=== PATIENT | male | born 1940 | race Caucasian/White ===

== ENCOUNTER 2020-03-31 14:22 | Emergency (ER) | payer MEDICARE ==
--- NOTE | 2020-03-31 14:27 | ERPHSYRPT ---
- History of Present Illness Time Seen by Provider: 03/31/20 14:27 Source: patient Exam Limitations: no limitations Physician History: This is a 79-year-old white male who has a history of significant peripheral neuropathy and was walking out of a hardware store and his foot hit sidewalk curb. He then fell onto his left side. He complains of pain in the left shoulder left upper arm, left elbow, left forearm, left wrist, left hand and left ribs. He did not hit his head. He did not lose consciousness. He is on Plavix. He has a history of hypertension, diabetes and gastroesophageal reflux disease. Occurred: just prior to arrival Reason for Fall: tripped Injuries/Pain Location: upper extremity (Left) Loss of Consciousness: no loss of consciousness Quality: aching Severity of Pain-Max: moderate Severity of Pain-Current: moderate Modifying Factors: Improves With: movement Associated Symptoms (Fall): extremity injury (Left upper extremity) Allergies/Adverse Reactions: No Known Drug Allergies Allergy (Unverified 03/31/20 14:45) Home Medications: Amlodipine Besylate 5 mg [Norvasc 5 mg] 5 mg PO DAILY 03/31/20 [History] Aspirin 81 gm Chew [Baby Aspirin 81 mg Chew] 81 mg PO DAILY 03/31/20 [History] Clopidogrel Bisulfate [Clopidogrel] 75 mg PO DAILY 03/31/20 [History] Folic Acid 1 mg [Folate 1 mg] 1 mg PO DAILY 03/31/20 [History] Gabapentin 100 mg PO DAILY 03/31/20 [History] Levothyroxine Sodium [Synthroid] 125 mcg PO DAILY 03/31/20 [History] Lisinopril 20 mg [Zestril 20 MG] 20 mg PO DAILY 03/31/20 [History] Meclizine HCl 25 mg [Antivert 25 mg] 25 mg PO TID 03/31/20 [History] Metoprolol Succinate 50 mg PO BID 03/31/20 [History] [place]-3 Fatty Acids [[place]-3] 100 mg PO DAILY 03/31/20 [History] Hx Tetanus, Diphtheria Vaccination/Date Given: No Hx Influenza Vaccination/Date Given: No Hx Pneumococcal Vaccination/Date Given: No Travel Risk - International Travel Have you traveled outside of the country in past 3 weeks: No - Coronavirus Screening Are you exhibiting any of the following symptoms?: No Close contact with a COVID-19 positive Pt in past 14-21 Days: No - Review of Systems Constitutional: No Symptoms Eyes: No Symptoms Ears, Nose, & Throat: No Symptoms Respiratory: No Symptoms Cardiac: No Symptoms Abdominal/Gastrointestinal: No Symptoms Genitourinary Symptoms: No Symptoms Musculoskeletal: Fall, Injury (Left upper extremity, left ribs) Skin: No Symptoms Neurological: No Symptoms Psychological: No Symptoms Endocrine: No Symptoms Hematologic/Lymphatic: No Symptoms Immunological/Allergic: No Symptoms All Other Systems: Reviewed and Negative - Past Medical History Neurological History: No Pertinent History Cardiac History: High Cholesterol, Hypertension, Myocardial Infarction ([place]) Respiratory History: No Pertinent History Endocrine Medical History: Diabetes Type II, Hypothyroidism Musculoskeletal History: No Pertinent History GI Medical History: Hemorrhoids, Ulcer History: No Pertinent History Psycho-Social History: Anxiety, Depression Male Reproductive Disorders: No Pertinent History Other Medical History: AORTA STENT - Past Surgical History Past Surgical History: Yes Neuro Surgical History: No Pertinent History Cardiac: No Pertinent History Respiratory: No Pertinent History Genitourinary: No Pertinent History Male Surgical History: No Pertinent History Other Surgical History: AORTA STENT,TONSILLS, - Social History Smoking Status: Never smoker Exposure to second hand smoke: Yes Drug Use: none Patient Lives Alone: No - Nursing Vital Signs Nursing Vital Signs: Initial Vital Signs Temperature 98.0 F 03/31/20 14:36 Pulse Rate 61 03/31/20 14:36 Respiratory Rate 16 03/31/20 14:36 Blood Pressure 154/82 03/31/20 14:36 O2 Sat by Pulse Oximetry 97 03/31/20 14:36 Pain Scale Pain Intensity 5 - Len Coma Score Best Eye Response (Len): (4) open spontaneously Best Verbal Response (Len): (5) oriented Best Motor Response (Sophia): (6) obeys commands Len Total: 15 - Physical Exam General Appearance: no apparent distress, alert, anxiety Head Injury: no evidence of injury Eye Exam: PERRL/EOMI, eyes nml inspection ENT Exam: airway nml, nml ext.inspection Neck Exam: supple, trachea midline, full range of motion, normal alignment, normal inspection Respiratory/Chest Exam: normal breath sounds, No chest tenderness, No respiratory distress, No ecchymosis, No crepitus Cardiovascular Exam: normal heart sounds, regular rate/rhythm Gastrointestinal Exam: No tenderness Rectal Exam: not done Back Exam: normal inspection, normal range of motion, No CVA tenderness, No vertebral tenderness Extremity Exam: normal range of motion, pelvis stable, swelling (Dorsal aspect left hand), tenderness (Left shoulder, left humerus, left elbow, left forearm, left wrist, left hand), No deformities Neurologic Exam: alert, oriented x 3, cooperative, paediatric thoracic physician II-XII nml as tested, normal mood/affect, nml cerebellar function, nml station & gait, sensation nml Skin Exam: normal color, warm, dry SpO2 Interpretation: normal O2 Delivery: Room Air - Course Nursing assessment & vital signs reviewed: Yes Ordered Tests: Active Orders 24 hr Category Date Time Status ELBOW (MINIMUM 3 VIEWS) Stat Exams 03/31/20 15:19 Completed FOREARM Stat Exams 03/31/20 15:20 Completed HAND (MINIMUM 3 VIEWS) Stat Exams 03/31/20 15:19 Completed HUMERUS Stat Exams 03/31/20 15:19 Completed RIBS UNILATERAL Stat Exams 03/31/20 15:20 Completed SHOULDER Stat Exams 03/31/20 15:19 Completed WRIST (MIN 3 VIEWS) Stat Exams 03/31/20 15:19 Completed - Progress Progress: unchanged, pain not gone completely, re-examined Progress Note: 03/31/20 16:56 X-rays of all the left sided studies that were performed are negative for any acute fracture or dislocations. Counseled pt/family regarding: diagnosis, need for follow-up, rad results - Departure Departure Disposition: Home Clinical Impression: Fall with injury, Multiple contusions Condition: Stable Critical Care Time: No Referrals: FABRICIO JACKSON MD [Primary Care Provider] - Additional Instructions: Ice pack to areas 3 times a day. Follow-up with primary care physician for persistent symptoms. Prescriptions: Oxycodone HCl/Acetaminophen [Percocet 5-325 mg Tablet] 1 each PO Q8H PRN PRN #6 tablet MDD 3 PRN Reason: Pain
[2020-03-31 15:51] VITALS: O2SAT 98
--- NOTE | 2020-03-31 16:33 | XRAY ---
Indication: Pain following fall. Comparison: None 3 view left wrist demonstrates advanced 1st metacarpal multangular scaphoid degenerative changes and mild scattered vascular calcifications. No other bony, articular, or soft tissue abnormalities.
--- NOTE | 2020-03-31 16:35 | XRAY ---
Indication: Pain following fall. Comparison: None 3 view left shoulder demonstrates mild glenohumeral degenerative arthropathy, moderate AC degenerative arthropathy, mild multilevel thoracic degenerative spondylosis, and left pacemaker. No other bony, articular, or soft tissue abnormalities.
--- NOTE | 2020-03-31 16:38 | XRAY ---
Indication: Pain following fall. Comparison: None 2 view left ribs demonstrates mild degenerative spondylosis throughout the spine, left shoulder degenerative arthropathy reported separately, left dual-lead pacemaker, incompletely visualized aortic stent graft, and splenic calcified granulomas. No other bony, articular, or soft tissue abnormalities.
--- NOTE | 2020-03-31 16:38 | XRAY ---
Indication: Pain following fall. Comparison: None 2 view left humerus demonstrates shoulder degenerative arthropathy reported separately and left pacemaker. No other bony, articular, or soft tissue abnormalities.
--- NOTE | 2020-03-31 16:39 | XRAY ---
Indication: Pain following fall. Comparison: None 2 view left forearm demonstrates small olecranon spur and wrist degenerative arthropathy reported separately. No other bony, articular, or soft tissue abnormalities.
--- NOTE | 2020-03-31 16:39 | XRAY ---
Indication: Pain following fall. Comparison: None 3 view left hand demonstrates mild degenerative changes all IP joints and advanced 1st metacarpal multangular scaphoid degenerative changes. No other bony, articular, or soft tissue abnormalities.
--- NOTE | 2020-03-31 16:42 | XRAY ---
Indication: Pain following fall. Comparison: None 3 view left elbow demonstrates small spurring of olecranon and medial epicondyle. No other bony, articular, or soft tissue abnormalities.
[2020-03-31 17:15] VITALS: BP 117/79; PULSE 60
== END 2020-03-31 17:22 | disposition home or self-care (01) ==
LOC: ED 14:22
DX: M25.512 Pain in left shoulder (principal); M79.622 Pain in left upper arm; M25.522 Pain in left elbow; M25.532 Pain in left wrist; M79.642 Pain in left hand; I10 Essential (primary) hypertension; E11.9 Type 2 diabetes mellitus without complications; Z79.01 Long term (current) use of anticoagulants; W18.31XA Fall on same level due to stepping on an object, initial encounter
CPT/HCPCS: 71100; 73030; 73060; 73080; 73090; 73110; 73130; 99283

== ENCOUNTER 2020-06-28 06:42 | Emergency (ER) | payer MEDICARE ==
--- NOTE | 2020-06-28 07:18 | ERPHSYRPT ---
- History of Present Illness Time Seen by Provider: 06/28/20 07:05 Historian: patient Exam Limitations: no limitations Patient Subjective Stated Complaint: pt states "I had chest pain 2 days ago with pain in my shoulders." "The pain comes and goes." Triage Nursing Assessment: pt ambulated into the er with a cane; pt is axo x4; c/o chest pain intermitten for 2 days; pt denies pain at this time; pt states he had chest pain 30 minutes prior to coming in; pt states that he took 2 81 mg aspirin; pt states he has hx of CO; hx aortic stent; clear heart tone; paced rythm; no edema present; strong radial pulses; strong pedal pulses; clear lung sounds in all lobes; no JVD present; >3 cap refill; vitals wnl Physician History: Patient is a 79-year-old male presents to our emergency department with complaints of intermittent chest pain. Patient states he started experiencing chest pain 2 days ago. Chest pain has been on and off according to patient. When present the pain typically radiates to both shoulders and the left side of his neck. No associated nausea vomiting or diaphoresis. Chest pain tends to spontaneously resolve. Patient last had chest pain approximately 30 minutes prior to arrival. Patient is currently pain-free. Patient took 2 aspirin prior to arrival. Patient advises that he has a history of CO in the past which resulted in multiple cardiac stents, and aortic stent. Patient currently has a cardiac pacemaker. Patient feels well this time. He voices no other complaints or concerns. Timing/Duration: day(s) (2 days.) Activities at Onset: none Quality: aching Location: substernal Chest Pain Radiation: neck (Pain radiates to the neck and both shoulders.) Severity of Pain-Max: moderate Severity of Pain-Current: mild Modifying Factors: Improves With: nothing Associated Symptoms: denies symptoms, No nausea, No vomiting, No palpitations, No abdominal pain, No shortness of breath, No hurts to breathe, No diaphoresis, No fever, No edema Prior Chest Pain/Cardiac Workup: cardiac cath, heart attack Nitro Today/Relief: no nitro taken today Aspirin Treatment Today: 81 mg x 2 Allergies/Adverse Reactions: No Known Drug Allergies Allergy (Verified 06/28/20 06:44) Home Medications: Amlodipine Besylate 5 mg [Norvasc 5 mg] 5 mg PO DAILY 03/31/20 [History] Aspirin 81 gm Chew [Baby Aspirin 81 mg Chew] 81 mg PO DAILY 03/31/20 [History] Clopidogrel Bisulfate [Clopidogrel] 75 mg PO DAILY 03/31/20 [History] Folic Acid 1 mg [Folate 1 mg] 1 mg PO DAILY 03/31/20 [History] Gabapentin 100 mg PO DAILY 03/31/20 [History] Levothyroxine Sodium [Synthroid] 125 mcg PO DAILY 03/31/20 [History] Lisinopril 20 mg [Zestril 20 MG] 20 mg PO DAILY 03/31/20 [History] Meclizine HCl 25 mg [Antivert 25 mg] 25 mg PO TID 03/31/20 [History] Metoprolol Succinate 50 mg PO BID 03/31/20 [History] [place]-3 Fatty Acids [[place]-3] 100 mg PO DAILY 03/31/20 [History] Hx Tetanus, Diphtheria Vaccination/Date Given: No Hx Influenza Vaccination/Date Given: Yes Hx Pneumococcal Vaccination/Date Given: No Travel Risk - International Travel Have you traveled outside of the country in past 3 weeks: No - Coronavirus Screening Are you exhibiting any of the following symptoms?: No Close contact with a COVID-19 positive Pt in past 14-21 Days: No - Review of Systems Constitutional: No Symptoms, No Fever, No Chills Eyes: No Symptoms Ears, Nose, & Throat: No Symptoms Respiratory: No Symptoms, No Cough, No Dyspnea Cardiac: No Symptoms, No Chest Pain, No Edema, No Syncope Abdominal/Gastrointestinal: No Symptoms, No Abdominal Pain, No Nausea, No Vomiting, No Diarrhea Genitourinary Symptoms: No Symptoms, No Dysuria Musculoskeletal: No Symptoms, No Back Pain, No Neck Pain Skin: No Symptoms, No Rash Neurological: No Symptoms, No Dizziness, No Focal Weakness, No Sensory Changes Psychological: No Symptoms Endocrine: No Symptoms Hematologic/Lymphatic: No Symptoms Immunological/Allergic: No Symptoms All Other Systems: Reviewed and Negative - Past Medical History Pertinent Past Medical History: Yes Neurological History: No Pertinent History Cardiac History: High Cholesterol, Hypertension, Myocardial Infarction ([place]) Respiratory History: No Pertinent History Endocrine Medical History: Diabetes Type II, Hypothyroidism Musculoskeletal History: No Pertinent History GI Medical History: Hemorrhoids, Ulcer History: No Pertinent History Psycho-Social History: Anxiety, Depression Male Reproductive Disorders: No Pertinent History Other Medical History: AORTA STENT - Past Surgical History Past Surgical History: Yes Neuro Surgical History: No Pertinent History Cardiac: No Pertinent History Respiratory: No Pertinent History Genitourinary: No Pertinent History Male Surgical History: No Pertinent History Other Surgical History: AORTA STENT,TONSILLS, - Social History Smoking Status: Former smoker Exposure to second hand smoke: Yes Drug Use: none Patient Lives Alone: No - Nursing Vital Signs Nursing Vital Signs: Initial Vital Signs Temperature 98.2 F 06/28/20 06:44 Pulse Rate 60 06/28/20 06:44 Respiratory Rate 20 06/28/20 06:44 Blood Pressure 132/72 06/28/20 06:44 O2 Sat by Pulse Oximetry 97 06/28/20 06:44 Pain Scale Pain Intensity 0 - Physical Exam General Appearance: no apparent distress, alert Eye Exam: PERRL/EOMI, eyes nml inspection Ears, Nose, Throat Exam: normal ENT inspection, moist mucous membranes Neck Exam: normal inspection, non-tender, supple, full range of motion Respiratory Exam: normal breath sounds, lungs clear, No respiratory distress Cardiovascular Exam: regular rate/rhythm, normal heart sounds Gastrointestinal/Abdomen Exam: soft, No tenderness, No mass Back Exam: normal inspection, No CVA tenderness, No vertebral tenderness Extremity Exam: normal inspection, normal range of motion Neurologic Exam: alert, oriented x 3, cooperative, normal mood/affect, sensation nml, No motor deficits Skin Exam: normal color, warm, dry Lymphatic Exam: No adenopathy SpO2 Interpretation: normal SpO2: 97 O2 Delivery: Room Air - Course Nursing assessment & vital signs reviewed: Yes EKG Interpreted by Me: RATE (60), Other (Atrial paced rhythm) - Radiology Exams Chest X-ray Interpretation: Teleradiologist Report (Hyperinflated lungs, left dual- lead pacemaker, right hilar calcified nodes, degenerative changes observed in bony thorax. Nonacute chest with chronic features.) Ordered Tests: Active Orders 24 hr Category Date Time Status AMA [Release AMA] OM.NOW Care 06/28/20 11:28 Active Shelter Director STAT Care 06/28/20 07:04 Active EKG-ER Only STAT Care 06/28/20 07:03 Active IV Insertion STAT Care 06/28/20 07:03 Active Pulse Oximetry (ED) STAT Care 06/28/20 07:03 Active CHEST 1 VIEW (PORTABLE) Stat Exams 06/28/20 07:04 Completed CBC W DIFF Stat Lab 06/28/20 07:20 Completed CMP Stat Lab 06/28/20 07:20 Completed MAGNESIUM Stat Lab 06/28/20 07:20 Completed NT PRO BNP Stat Lab 06/28/20 07:20 Completed TROPONIN Q3H Lab 06/28/20 07:20 Completed TROPONIN Q3H Lab 06/28/20 10:27 Completed TROPONIN Q3H Lab 06/28/20 13:15 Ordered TROPONIN Q3H Lab 06/28/20 16:15 Ordered TROPONIN Q3H Lab 06/28/20 19:15 Ordered UA W/RFX UR CULTURE Stat Lab 06/28/20 07:58 Completed Lab/Rad Data: Laboratory Result Diagrams 06/28/20 07:20 06/28/20 07:20 Laboratory Results 06/28/20 06/28/20 06/28/20 Range/Units 10:27 07:58 07:20 WBC (4.0-10.5) K/mm3 RBC (4.1-5.6) M/mm3 Hgb (12.5-18.0) gm/dl Hct (42-50) % MCV (78-100) fl MCH (26-32) pg MCHC (32-36) g/dl RDW (11.5-14.0) % Plt Count (150-450) K/mm3 MPV (7.5-11.0) fl Gran % (36.0-66.0) % Eos # (Auto) (0-0.5) Absolute Lymphs (auto) (1.0-4.6) Absolute Monos (auto) (0.0-1.3) Lymphocytes % (24.0-44.0) % Monocytes % (0.0-12.0) % Eosinophils % (0.00-5.0) % Basophils % (0.0-0.4) % Absolute Granulocytes (1.4-6.9) Basophils # (0-0.4) Sodium (137-145) mmol/L Potassium (3.5-5.1) mmol/L Chloride (98-107) mmol/L Carbon Dioxide (22-30) mmol/L Anion Gap (5-15) MEQ/L BUN (9-20) mg/dL Creatinine (0.66-1.25) mg/dL Estimated GFR ML/MIN Glucose (74-106) mg/dL Calcium (8.4-10.2) mg/dL Magnesium (1.6-2.3) mg/dL Total Bilirubin (0.2-1.3) mg/dL AST (17-59) U/L ALT (0-50) U/L Alkaline Phosphatase (38-126) U/L Troponin I < 0.012 < 0.012 (0.000-0.034) ng/mL NT-Pro-B Natriuret Pep (0-1800) pg/mL Serum Total Protein (6.3-8.2) g/dL Albumin (3.5-5.0) g/dL Urine Color YELLOW (YELLOW) Urine Appearance CLEAR (CLEAR) Urine pH 7.0 (5-6) Ur Specific Lucas 1.008 (1.005-1.025) Urine Protein 30 (Negative) Urine Ketones NEGATIVE (NEGATIVE) Urine Blood NEGATIVE (0-5) Rony/ul Urine Nitrite NEGATIVE (NEGATIVE) Urine Bilirubin NEGATIVE (NEGATIVE) Urine Urobilinogen NEGATIVE (0-1) mg/dL Ur Leukocyte Esterase NEGATIVE (NEGATIVE) Urine WBC (Auto) NONE (0-5) /HPF Urine RBC (Auto) NONE (0-2) /HPF U Epithel Cells (Auto) NONE (FEW) /HPF Urine Bacteria (Auto) NONE (NEGATIVE) /HPF Urine Culture Reflexed NO (NO) Urine Glucose NEGATIVE (NEGATIVE) mg/dL 06/28/20 06/28/20 Range/Units 07:20 07:20 WBC 7.7 (4.0-10.5) K/mm3 RBC 4.40 (4.1-5.6) M/mm3 Hgb 12.9 (12.5-18.0) gm/dl Hct 38.9 L (42-50) % MCV 88.4 (78-100) fl MCH 29.3 (26-32) pg MCHC 33.2 (32-36) g/dl RDW 13.1 (11.5-14.0) % Plt Count 220 (150-450) K/mm3 MPV 8.9 (7.5-11.0) fl Gran % 53.8 (36.0-66.0) % Eos # (Auto) 0.44 (0-0.5) Absolute Lymphs (auto) 2.23 (1.0-4.6) Absolute Monos (auto) 0.85 (0.0-1.3) Lymphocytes % 29.1 (24.0-44.0) % Monocytes % 11.1 (0.0-12.0) % Eosinophils % 5.7 H (0.00-5.0) % Basophils % 0.3 (0.0-0.4) % Absolute Granulocytes 4.12 (1.4-6.9) Basophils # 0.02 (0-0.4) Sodium 136 L (137-145) mmol/L Potassium 3.7 (3.5-5.1) mmol/L Chloride 101 (98-107) mmol/L Carbon Dioxide 27 (22-30) mmol/L Anion Gap 12.3 (5-15) MEQ/L BUN 17 (9-20) mg/dL Creatinine 1.34 H (0.66-1.25) mg/dL Estimated GFR 54.7 ML/MIN Glucose 200 H (74-106) mg/dL Calcium 9.5 (8.4-10.2) mg/dL Magnesium 1.9 (1.6-2.3) mg/dL Total Bilirubin 0.50 (0.2-1.3) mg/dL AST 23 (17-59) U/L ALT 18 (0-50) U/L Alkaline Phosphatase 43 (38-126) U/L Troponin I (0.000-0.034) ng/mL NT-Pro-B Natriuret Pep 236 (0-1800) pg/mL Serum Total Protein 7.3 (6.3-8.2) g/dL Albumin 4.3 (3.5-5.0) g/dL Urine Color (YELLOW) Urine Appearance (CLEAR) Urine pH (5-6) Ur Specific Lucas (1.005-1.025) Urine Protein (Negative) Urine Ketones (NEGATIVE) Urine Blood (0-5) Rony/ul Urine Nitrite (NEGATIVE) Urine Bilirubin (NEGATIVE) Urine Urobilinogen (0-1) mg/dL Ur Leukocyte Esterase (NEGATIVE) Urine WBC (Auto) (0-5) /HPF Urine RBC (Auto) (0-2) /HPF U Epithel Cells (Auto) (FEW) /HPF Urine Bacteria (Auto) (NEGATIVE) /HPF Urine Culture Reflexed (NO) Urine Glucose (NEGATIVE) mg/dL - Progress Progress: improved Air Movement: good Progress Note: Patient is a 79-year-old male presents to our ED with complaints of intermittent chest pain radiating to her neck and bilateral shoulders. Patient's preliminary work-up reveals a paced rhythm on EKG. Troponin negative x2. Patient advises he has no chest pain at this time. His last bout of chest pain was about 30 minutes prior to arrival. Patient has extensive cardiovascular history including CO in the past, multiple cardiac stents, aortic stent and risk factors including advanced age and diabetes. We advised admission for cardiac rule out. However patient refused. Patient states that he has no chest pain at this time and prefers to go home. He stated that he has many responsibilities at home. Patient is of sound mind and appropriate to make informed and independent medical decisions. Patient understands that leaving AGAINST MEDICAL ADVICE can result in delayed diagnosis, increased risk of morbidity, mortality, short and long-term disability including . In spite of these risks, patient has decided to leave AGAINST MEDICAL ADVICE. Patient understands that he may return to our ED at any point if he reconsiders. Patient agrees to follow-up with his or her primary care doctor within 48 hours for reevaluation. Patient voices no other complaints or concerns at this time. We will release patient AGAINST MEDICAL ADVICE per their request. 06/28/20 11:29 Blood Culture(s) Obtained: No Antibiotics given: No - Departure Departure Disposition: AMA Clinical Impression: Hyperglycemia, Chest pain, ACS (acute coronary syndrome), Renal insufficiency, LAD (lymphadenopathy), hilar Condition: Stable Critical Care Time: No Referrals: FABRICIO JACKSON MD [Primary Care Provider] - Additional Instructions: Discharge/Care Plan LUNA POLANCO was seen on 06/28/20 in the Emergency Room. The patient was counseled regarding Diagnosis,Lab results, Imaging studies, need for follow up and when to return to the Emergency Room. We advised admission. However Mr. Polanco has decided to leave AGAINST MEDICAL ADVICE. He understands that risks include delayed diagnosis, worsening of symptoms, increased risk of morbidity, mortality, short long-term disability including . However, Mr. Polanco may return to our ED at any point if he changes his mind. Prescriptions given: Discharge Note I have spoken with the patient and/or caregivers. I have explained the patient's condition, diagnosis and treatment plan based on the information available to me at this time. I have answered the patient's and/or caregiver's questions and addressed any concerns. The patient and/or caregivers have as good understanding of the patient's diagnosis, condition and treatment plan as can be expected at this point. The vital signs have been stable. The patient's condition is stable and appropriate for discharge from the emergency department. The patient will pursue further outpatient evaluation with the primary care physician or other designated or consulting physician as outlined in the discharge instructions. The patient and/or caregivers are agreeable to this plan of care and follow-up instructions have been explained in detail. The patient and/or caregivers have received these instruction. The patient/and or caregivers are aware that any significant change in condition or worsening of symptoms should prompt an immediate return to this or the closest emergency department or call 911.
[2020-06-28 07:22] LABS: Absolute Neutrophil Ct (ANC) 4.12 (1.4-6.9); BASOPHIL % 0.3 % (0.0-0.4); Basophil (Absolute #) 0.02 (0-0.4); Eosinophil % 5.7 % (0.00-5.0); Eosinophil (Absolute #) 0.44 (0-0.5); Hematocrit 38.9 % (42-50); Hemoglobin 12.9 gm/dl (12.5-18.0); Lymphocyte (Absolute #) 2.23 (1.0-4.6); Lymphocytes % 29.1 % (24.0-44.0); Mean Cell Volume 88.4 fl (78-100); Mean Corpuscular Hemoglobin 29.3 pg (26-32); Mean Corpuscular Hgb Concent. 33.2 g/dl (32-36); Mean Platelet Volume 8.9 fl (7.5-11.0); Monocyte (Absolute #) 0.85 (0.0-1.3); Monocytes % 11.1 % (0.0-12.0); Neutrophil % 53.8 % (36.0-66.0); Platelet Count 220 K/mm3 (150-450); Red Cell Distribution Width 13.1 % (11.5-14.0); White Blood Count 7.7 K/mm3 (4.0-10.5)
[2020-06-28 07:55] LABS: ALBUMIN 4.3 g/dL (3.5-5.0); ANION GAP 12.3 MEQ/L (5-15); BILIRUBIN,TOTAL 0.5 mg/dL (0.2-1.3); Calcium 9.5 mg/dL (8.4-10.2); Creatinine 1 1.34 mg/dL (0.66-1.25); EST GLOMERULAR FILTRATION RATE 54.7 ML/MIN; MAGNESIUM 1.9 mg/dL (1.6-2.3); Potassium 3.7 mmol/L (3.5-5.1); Total Protein 7.3 g/dL (6.3-8.2)
[2020-06-28 08:06] LABS: Appearance CLEAR (CLEAR); Bilirubin NEGATIVE (NEGATIVE); Blood NEGATIVE Ery/ul (0-5); Glucose NEGATIVE (NEGATIVE); Ketones NEGATIVE (NEGATIVE); Leukocyte Esterase NEGATIVE (NEGATIVE); Nitrite NEGATIVE (NEGATIVE); Protein,Urine Dip 30 (Negative); Specific Gravity 1.008 (1.005-1.025); Urobilinogen NEGATIVE mg/dL (0-1)
--- NOTE | 2020-06-28 08:46 | XRAY ---
Indication: Chest pain. Comparison: May 29, 2019. Portable chest remains hyperinflated and clear. Heart is not enlarged for AP portable technique with new left dual-lead pacemaker. Stable right hilar calcified nodes. Bony thorax intact again with mild degenerative changes. Impression: Continued nonacute chest with chronic features.
[2020-06-28 11:38] VITALS: BP 110/70; PULSE 60; O2SAT 96
== END 2020-06-28 11:45 | disposition left against medical advice (07) ==
LOC: ED 06:42
DX: E11.65 Type 2 diabetes mellitus with hyperglycemia (principal); R07.89 Other chest pain; I24.9 Acute ischemic heart disease, unspecified; N28.9 Disorder of kidney and ureter, unspecified; R59.1 Generalized enlarged lymph nodes; M54.2 Cervicalgia; E78.00 Pure hypercholesterolemia, unspecified; I10 Essential (primary) hypertension; E03.9 Hypothyroidism, unspecified; I25.2 Old myocardial infarction; Z79.899 Other long term (current) drug therapy
CPT/HCPCS: 36000; 36415; 71045; 80053; 81001; 83735; 83880; 84484; 85025; 93005; 93041; 94760; 99284

== ENCOUNTER 2024-04-15 16:09 | Emergency (ER) | payer MEDICARE ==
[2024-04-15 16:23] VITALS: TEMP 97.7
--- NOTE | 2024-04-15 16:59 | XRAY ---
Indication: Cough. Comparison: June 28, 2020 Portable chest again hyperinflated and clear. Heart not enlarged again with left pacemaker and tiny right hilar calcified nodes. Bony thorax intact again with osteopenia and moderate degenerative changes. Impression: Continued nonacute chest with chronic features.
[2024-04-15] MEDS ORDERED: DUONEB 0.5-3 MG/3 ml Neb IH ONE (17:29)
[2024-04-15 17:31] LABS: Absolute Neutrophil Ct (ANC) 2.76 x10^3/uL (1.78-5.38); BASOPHIL % 0.6 % (0.2-1.2); Basophil (Absolute #) 0.03 x10^3/uL (0.01-0.08); Eosinophil % 5.6 % (0.8-7.0); Eosinophil (Absolute #) 0.29 x10^3/uL (0.04-0.54); Hemoglobin 10.6 g/dL (13.7-17.5); IMMATURE GRAN # 0.01 x10^3u/L (0.001-0.031); IMMATURE GRAN % 0.2 % (0.001-0.429); Lymphocyte (Absolute #) 1.51 x10^3/uL (1.32-3.57); Mean Cell Volume 89.9 fL (79.0-92.2); Mean Corpuscular Hemoglobin 28.9 pg (25.7-32.2); Mean Corpuscular Hgb Concent. 32.1 g/dL (32.3-36.5); Mean Platelet Volume 8.9 fL (9.4-12.4); Monocyte (Absolute #) 0.61 x10^3/uL (0.30-0.82); Monocytes % 11.7 % (5.3-12.2); Neutrophil % 52.9 % (34.0-67.9); Platelet Count 206 x10^3/uL (163-337); Red Blood Count 3.67 x10^6/uL (4.63-6.08); Red Cell Distribution Width 13.8 % (11.6-14.4); White Blood Count 5.2 x10^3/uL (4.23-9.07)
[2024-04-15] MEDS: DUONEB 0.5-3 MG/3 ml Neb IH ONE (17:32)
[2024-04-15 18:00] LABS: ALBUMIN 3.5 g/dL (3.5-5.0); ALKALINE PHOSPHATASE 46 U/L (38-126); BLOOD UREA NITROGEN 29 mg/dL (9-20); CHLORIDE 107 mmol/L (98-107); Calcium 9.4 mg/dL (8.4-10.2); Carbon Dioxide 22 mmol/L (22-30); Creatinine 1 1.43 mg/dL (0.66-1.25); EST GLOMERULAR FILTRATION RATE 48.6 ML/MIN; Glucose 256 mg/dL (74-106); MAGNESIUM 1.6 mg/dL (1.6-2.3); Potassium 4.3 mmol/L (3.5-5.1); SGOT/AST 33 U/L (17-59); SGPT/ALT 28 U/L (0-50); SODIUM 139 mmol/L (135-145); TROPONIN < 0.012 ng/mL (0.000-0.033); Total Protein 6.3 g/dL (6.3-8.2)
[2024-04-15 18:31] VITALS: BP 135/75; PULSE 69; RESP 18; O2SAT 99
[2024-04-15 18:42] LABS: INFLUENZA A NEGATIVE (NEGATIVE); INFLUENZA B NEGATIVE (NEGATIVE); RESPIRATORY SYNCTIAL VIRUS NEGATIVE (NEGATIVE)
--- NOTE | 2024-04-15 18:45 | ERPHSYRPT ---
- History of Present Illness Time Seen by Provider: 04/15/24 16:32 Source: patient Exam Limitations: no limitations Patient Subjective Stated Complaint: pt here for cough, and not feeling well, was just got out of hospital and is scedulaed for surgery in 9 days Triage Nursing Assessment: pt alert, walked in with cane, resp easy, skin w/d/p. no cough in er, chest with coarse wheezes in upper lobes Physician History: 83 years old male with history of hypertension, hyperlipidemia, congestive heart failure, CKD, peripheral vascular disease who was recently admitted at [facility] presented to the ER with worsening cough for the last 1 week. Also reports some dyspnea with exertion. Has minimal lower extremity swelling which is not any worse than usual. Patient has not been taking Lasix for quite some time. Patient denies any chest pain but take clear to yellow sputum with worsening cough especially with activity. Denies any fever or chills. No known sick contact. Allergies/Adverse Reactions: No Known Drug Allergies Allergy (Verified 04/15/24 16:20) Home Medications: Amlodipine Besylate 5 mg [Norvasc 5 mg] 5 mg PO DAILY 03/31/20 [History] Aspirin 81 gm Chew [Baby Aspirin 81 mg Chew] 81 mg PO DAILY 03/31/20 [History] Clopidogrel Bisulfate [Clopidogrel] 75 mg PO DAILY 03/31/20 [History] Folic Acid 1 mg [Folate 1 mg] 1 mg PO DAILY 03/31/20 [History] Gabapentin 100 mg PO DAILY 03/31/20 [History] Levothyroxine Sodium [Synthroid] 125 mcg PO DAILY 03/31/20 [History] Lisinopril 20 mg [Zestril 20 MG] 20 mg PO DAILY 03/31/20 [History] Meclizine HCl 25 mg [Antivert 25 mg] 25 mg PO TID 03/31/20 [History] Metoprolol Succinate 50 mg PO BID 03/31/20 [History] Sheldon-3 Fatty Acids [Sheldon-3] 100 mg PO DAILY 03/31/20 [History] Hx Tetanus, Diphtheria Vaccination/Date Given: No Hx Influenza Vaccination/Date Given: Yes Hx Pneumococcal Vaccination/Date Given: No Immunizations Up to Date: No Travel Risk - International Travel Have you traveled outside of the country in past 3 weeks: No - Emerging Infectious Disease Are you exhibiting symptoms associated with any current EIDs: No - Review of Systems Constitutional: No Symptoms Eyes: No Symptoms Ears, Nose, & Throat: No Symptoms Respiratory: Cough, Dyspnea, Dyspnea on Exertion (YOUNG), Wheezing Cardiac: Edema Abdominal/Gastrointestinal: No Symptoms Genitourinary Symptoms: No Symptoms Musculoskeletal: Arthralgias Skin: No Symptoms Neurological: No Symptoms - Past Medical History Pertinent Past Medical History: Yes Neurological History: No Pertinent History Cardiac History: High Cholesterol, Hypertension, Myocardial Infarction ([place]) Respiratory History: No Pertinent History Endocrine Medical History: Diabetes Type II, Hypothyroidism Musculoskeletal History: No Pertinent History GI Medical History: Hemorrhoids, Ulcer History: No Pertinent History Psycho-Social History: Anxiety, Depression Male Reproductive Disorders: No Pertinent History Other Medical History: AORTA STENT - Past Surgical History Past Surgical History: Yes Neuro Surgical History: No Pertinent History Cardiac: No Pertinent History Respiratory: No Pertinent History Genitourinary: No Pertinent History Male Surgical History: No Pertinent History Other Surgical History: AORTA STENT,TONSILLS, - Social History Smoking Status: Former smoker Exposure to second hand smoke: Yes Drug Use: none Patient Lives Alone: No - Social Determinants of Health Will the patient participate in the screening: Declined to provide - Nursing Vital Signs Nursing Vital Signs: Initial Vital Signs Blood Pressure 144/86 04/15/24 16:20 O2 Sat by Pulse Oximetry 95 04/15/24 16:20 Pain Scale Pain Intensity 4 - Physical Exam General Appearance: no apparent distress, alert Eye Exam: PERRL/EOMI Ears, Nose, Throat Exam: normal ENT inspection Neck Exam: normal inspection, supple, full range of motion Respiratory Exam: diminished breath sounds, wheezing, No respiratory distress Cardiovascular Exam: regular rate/rhythm, normal heart sounds Gastrointestinal/Abdomen Exam: soft, normal bowel sounds, No tenderness Extremity Exam: normal inspection, normal range of motion Neurologic Exam: alert, oriented x 3, cooperative Skin Exam: normal color SpO2 Interpretation: normal SpO2: 99 O2 Delivery: Room Air - Course EKG Interpreted by Me: RATE (70, atrial sensed ventricular paced rhythm. No ST elevations, left axis deviation, PVCs) Ordered Tests: Active Orders 24 hr Category Date Time Status EKG-ER Only STAT Care 04/15/24 17:00 Active CHEST 1 VIEW (PORTABLE) Stat Exams 04/15/24 16:32 Completed CBC W DIFF Stat Lab 04/15/24 17:20 Completed CMP Stat Lab 04/15/24 17:20 Completed Lactic Acid Stat Lab 04/15/24 17:00 Completed MAGNESIUM Stat Lab 04/15/24 17:20 Completed NT PRO BNPII Stat Lab 04/15/24 17:20 Completed TROPONIN Q4H Lab 04/16/24 01:00 Ordered TROPONIN Q4H Lab 04/15/24 Ordered TROPONIN Q4H Lab 04/15/24 17:20 Completed Respiratory Therapy Assessment DAILY RT 04/15/24 17:35 Completed Medication Summary Discontinued Medications Generic Name Dose Route Start Last Admin Trade Name Freq PRN Reason Stop Dose Admin Albuterol/Ipratropium 3 ml 04/15/24 17:00 04/15/24 17:32 Ipratropium/Albuterol Sulfate 3 Ml Ampul.Neb IH 04/15/24 17:01 3 ml STAT ONE Administration Albuterol/Ipratropium Confirm 04/15/24 17:29 Ipratropium/Albuterol Sulfate 3 Ml Ampul.Neb Administered 04/15/24 17:30 Dose 3 ml IH .STK-MED ONE Azithromycin 500 mg 04/15/24 18:38 04/15/24 18:52 Azithromycin 250 Mg Tablet PO 04/15/24 18:39 500 mg STAT ONE Administration Azithromycin Confirm 04/15/24 18:50 Azithromycin 250 Mg Tablet Administered 04/15/24 18:51 Dose 500 mg .ROUTE .STK-MED ONE Lab/Rad Data: Laboratory Result Diagrams 04/15/24 17:20 04/15/24 17:20 Laboratory Results 04/15/24 04/15/24 04/15/24 Range/Units 17:25 17:20 17:20 WBC (4.23-9.07) x10^3/uL RBC (4.63-6.08) x10^6/uL Hgb (13.7-17.5) g/dL Hct (40.1-51.0) % MCV (79.0-92.2) fL MCH (25.7-32.2) pg MCHC (32.3-36.5) g/dL RDW (11.6-14.4) % Plt Count (163-337) x10^3/uL MPV (9.4-12.4) fL Gran % (34.0-67.9) % Immature Gran % (Auto) (0.001-0.429) % Nucleat RBC Rel Count (0.00-0.2) % Eos # (Auto) (0.04-0.54) x10^3/uL Immature Gran # (Auto) (0.001-0.031) x10^3u/L Absolute Lymphs (auto) (1.32-3.57) x10^3/uL Absolute Monos (auto) (0.30-0.82) x10^3/uL Absolute Nucleated RBC (0.00-0.012) x10^3u/L Lymphocytes % (21.8-53.1) % Monocytes % (5.3-12.2) % Eosinophils % (0.8-7.0) % Basophils % (0.2-1.2) % Absolute Granulocytes (1.78-5.38) x10^3/uL Basophils # (0.01-0.08) x10^3/uL Sodium 139 (135-145) mmol/L Potassium 4.3 (3.5-5.1) mmol/L Chloride 107 (98-107) mmol/L Carbon Dioxide 22 (22-30) mmol/L Anion Gap 14.0 (5-15) MEQ/L BUN 29 H (9-20) mg/dL Creatinine 1.43 H (0.66-1.25) mg/dL Estimated GFR 48.6 ML/MIN Glucose 256 H (74-106) mg/dL Lactic Acid (0.4-2.0) Calcium 9.4 (8.4-10.2) mg/dL Magnesium 1.6 (1.6-2.3) mg/dL Total Bilirubin 0.30 (0.2-1.3) mg/dL AST 33 (17-59) U/L ALT 28 (0-50) U/L Alkaline Phosphatase 46 (38-126) U/L Troponin I < 0.012 (0.000-0.033) ng/mL NT-Pro-B Natriuret Pep 2240 (<300) pg/mL Serum Total Protein 6.3 (6.3-8.2) g/dL Albumin 3.5 (3.5-5.0) g/dL Influenza Type A Ag NEGATIVE (NEGATIVE) Influenza Type B Ag NEGATIVE (NEGATIVE) RSV (PCR) NEGATIVE (NEGATIVE) SARS-CoV-2 (PCR) POSITIVE A (NEGATIVE) 04/15/24 04/15/24 Range/Units 17:20 17:00 WBC 5.2 (4.23-9.07) x10^3/uL RBC 3.67 L (4.63-6.08) x10^6/uL Hgb 10.6 L (13.7-17.5) g/dL Hct 33.0 L (40.1-51.0) % MCV 89.9 (79.0-92.2) fL MCH 28.9 (25.7-32.2) pg MCHC 32.1 L (32.3-36.5) g/dL RDW 13.8 (11.6-14.4) % Plt Count 206 (163-337) x10^3/uL MPV 8.9 L (9.4-12.4) fL Gran % 52.9 (34.0-67.9) % Immature Gran % (Auto) 0.2 (0.001-0.429) % Nucleat RBC Rel Count 0.0 (0.00-0.2) % Eos # (Auto) 0.29 (0.04-0.54) x10^3/uL Immature Gran # (Auto) 0.01 (0.001-0.031) x10^3u/L Absolute Lymphs (auto) 1.51 (1.32-3.57) x10^3/uL Absolute Monos (auto) 0.61 (0.30-0.82) x10^3/uL Absolute Nucleated RBC 0.00 (0.00-0.012) x10^3u/L Lymphocytes % 29.0 (21.8-53.1) % Monocytes % 11.7 (5.3-12.2) % Eosinophils % 5.6 (0.8-7.0) % Basophils % 0.6 (0.2-1.2) % Absolute Granulocytes 2.76 (1.78-5.38) x10^3/uL Basophils # 0.03 (0.01-0.08) x10^3/uL Sodium (135-145) mmol/L Potassium (3.5-5.1) mmol/L Chloride (98-107) mmol/L Carbon Dioxide (22-30) mmol/L Anion Gap (5-15) MEQ/L BUN (9-20) mg/dL Creatinine (0.66-1.25) mg/dL Estimated GFR ML/MIN Glucose (74-106) mg/dL Lactic Acid 1.9 (0.4-2.0) Calcium (8.4-10.2) mg/dL Magnesium (1.6-2.3) mg/dL Total Bilirubin (0.2-1.3) mg/dL AST (17-59) U/L ALT (0-50) U/L Alkaline Phosphatase (38-126) U/L Troponin I (0.000-0.033) ng/mL NT-Pro-B Natriuret Pep (<300) pg/mL Serum Total Protein (6.3-8.2) g/dL Albumin (3.5-5.0) g/dL Influenza Type A Ag (NEGATIVE) Influenza Type B Ag (NEGATIVE) RSV (PCR) (NEGATIVE) SARS-CoV-2 (PCR) (NEGATIVE) - Progress Progress: improved Air Movement: good Progress Note: 04/15/24 18:58 83 years old with multiple comorbidities evaluated in the ER for worsening cough for almost 1 week with productive of clear to yellow thick sputum. EKG is paced rhythm. He is given neb treatment, feeling much better on reevaluation. Chest x-ray is negative for any acute cardiopulmonary findings. Normal white count, fairly unremarkable chemistries except for CKD which is actually better than before with a creatinine of 1.4. Does have increase in BNP. Patient was taken off of diuretics by cardiology and does have appointment in 2 days. Patient also has positive COVID-19. Sats are in upper 90s. Offered Paxlovid which she does not wanted. I will still treat patient as a bronchitis, I have given a dose of Zithromax here and will continue to go home along with albuterol inhaler. I do not think patient symptoms are cardiac in nature at all but more of a infectious. Recommended outpatient follow-up. Discussed signs symptoms of worsening needing return to ER which he seems understanding. Stable for discharge. Blood Culture(s) Obtained: No Antibiotics given: Yes, No Counseled pt/family regarding: lab results, diagnosis, need for follow-up, rad results Medical Desision Making - Diagnostic Testing Diagnostic test were ordered, analyzed, and reviewed by me: Yes Radiological Interpretation: Reviewed by me - Risk of complications The pt has a mod risk of morbidity or mortality based on: Need for prescription drug management - Departure Departure Disposition: Home Clinical Impression: Acute bronchitis, COVID-19 virus detected Condition: Stable Critical Care Time: No Referrals: FABRICIO JACKSON MD [Primary Care Provider] - Follow up with PCP 1 day Instructions: Cough, Adult (DC), COVID-19 in adults - Discharge instructions Additional Instructions: Inhaler as recommended. Follow-up with cardiology in 2 days as scheduled. Follow-up with primary care for reevaluation. Return to ER for worsening cough wheezing/chest pain or if develop fever chills etc. Prescriptions: Albuterol Sulfate [Albuterol Sulfate Hfa] 8.5 gm IH Q6H PRN 14 Days #1 inh PRN Reason: Cough Azithromycin 250 mg [Zithromax 250 MG TABLET] 250 mg PO DAILY 4 Days #4 tablet
[2024-04-15] MEDS ORDERED: Zithromax 250 MG TABLET ONE (18:50)
[2024-04-15 18:51] LABS: SARS-CoV-2 Xpert Express POSITIVE (NEGATIVE)
[2024-04-15] MEDS: Zithromax 250 MG TABLET PO ONE (18:52)
== END 2024-04-15 19:15 | disposition home or self-care (01) ==
LOC: ED 16:09
DX: U07.1 COVID-19 (principal); J20.9 Acute bronchitis, unspecified; R05.1 Acute cough; R06.09 Other forms of dyspnea; E78.5 Hyperlipidemia, unspecified; I10 Essential (primary) hypertension; E11.9 Type 2 diabetes mellitus without complications; Z79.02 Long term (current) use of antithrombotics/antiplatelets; Z79.899 Other long term (current) drug therapy
CPT/HCPCS: 0241U; 36415; 71045; 80053; 83605; 83735; 83880; 84484; 85025; 93005; 94640; 99285; 99283; A9270-GY